=== PATIENT | male | born 1995 | race Caucasian/White ===

== ENCOUNTER 2022-12-28 14:19 | Outpatient (OUT) | payer OTHER, SELFPAY ==
--- NOTE | 2022-12-28 | XR_ITS ---
The [address] [address] Patient Name: J CARLOS BARCENAS MRN: [id number] date: 1995 Sex: M Assigned Patient Location: RAD Current Patient Location: RAD Accession/Order Number: [id number] Exam Date: 12/28/2022 14:30 Report Date: 12/28/2022 15:08 At the request of: KARIE NEGRO Procedure: XR knee RT 4V EXAM: XR knee RT 4V HISTORY: Right knee injury COMPARISON: None. TECHNIQUE: Routine views of the XR knee RT 4V FINDINGS/ XR/XR knee RT 4V IMPRESSION: 1. No acute fractures. 2. Unremarkable soft tissues. 3. Normal joint spacing. Joint effusion. Electronically authenticated by: ADELSO HALL Date: 12/28/2022 15:08
== END 2022-12-28 14:20 | disposition home or self-care (01) ==
LOC: RAD 14:22
PROVIDERS: PCP Family Medicine; Visit Provider Nurse Practitioner Family
DX: S89.91XA Unspecified injury of right lower leg, initial encounter (principal)
CPT/HCPCS: 73564

== ENCOUNTER 2023-01-11 10:14 | Outpatient (RCR) | payer OTHER, SELFPAY | END 2023-01-24 11:49 | disposition home or self-care (01) | LOC: PT 10:14 | PROVIDERS: PCP Family Medicine; Visit Provider Nurse Practitioner Family | DX: S83.91XD Sprain of unspecified site of right knee, subsequent encounter (principal); R26.89 Other abnormalities of gait and mobility; R26.9 Unspecified abnormalities of gait and mobility; S86.811D Strain of other muscle(s) and tendon(s) at lower leg level, right leg, subsequent encounter | CPT/HCPCS: 97110; 97161 ==

== ENCOUNTER 2023-02-13 12:24 | Outpatient (OUT) | payer OTHER, SELFPAY ==
--- OUTSIDE RECORDS SUMMARY | 2023-02-13 12:28 | XMS_ITS | CCD ---
Author Name Unknown Address [address] [place] [address] Organization [facility] Care Team Providers Care Instructor Dramatic Arts Name Role Phone LISA ESTEVEZ Unavailable Unavailable NO, PHYSICIAN Unavailable Unavailable AYLIN HEAD Unavailable Unavailabl e NO, PHYSICIAN Unavailable Unavailable AYLIN HEAD Unavailable Unavailabl e ASGEDOM, GOITOM ANDOM Unavailable Unavailabl e ASGEDOM, GOITOM ANDOM Unavailable Unavailabl e GIRME, NADIA SHANKARRAO Unavailable Unavaila Ivonne Akbar Primary Care Provider Torrie Paniagua Unavailable CANDELARIO, DR CASIMIRO Collado Primary Care Unavailable SANDEEP RICKETTS Admitting Unavailable SANDEEP RICKETTS Attending Unavailable SANDEEP RICKETTS Consulting Unavailable MICHELE CHAVEZ Consulting Unavailable FAITH RAMSEY Consulting Unavailable PRISCILLA, DR LE Orosco Consulting Unavailable PRISCILLA, DR LE Orosco Admitting Unavailable CANDELARIO, DR CASIMIRO Collado Primary Care Unavailable PRISCILLA, DR LE Orosco Attending Unavailable JAY HOOK Consulting Unavailable PIA JUAREZ Consulting Unavailable Kori Roldan Unavailable Allergies Allergy Classification Reported Allergen(s) Allergy Type Date of Onset Reaction(s) Facility (1 source) spider venom Drug allergy (disorder) 10-29-2021 [facility] Repository Medications Current Medications Medication Drug Class(es) Dates Sig (Normalized) Sig (Original) dextromethorphan hydrobromide 15 mg / guaiFENesin 400 mg / pseudoephedrine hydrochloride 60 mg oral tablet (1 source) alpha-Adrenergic Agonist, Uncompetitive E-rrherw-G-aspartat e Receptor Antagonist, Sigma-1 Agonist Start: 11-02-2022 take 1 tablet by mouth every six hours as needed for cough Capmist DM 60-15-400 MG 1 tablet Orally q6hrs prn congestion/coug h for 7 days Oct, Active Completed/Discontinued Medications Medication Drug Class(es) Dates Sig (Normalized) Sig (Original) cefTRIAXone (3 sources) Cephalosporin Antibacterial Start: 11-24-2015 Rocephin 500 mg Nov, 250 mg Problems Active Problems Problem Classification Problem Date Documented Date Episodic/Chronic Anxiety disorders (1 source) Anxiety disorder, unspecified; Translations: [ANXIETY DISORDER UNSPECIFIED] Onset: 09-12-2021 Chronic Immunizations and screening for infectious disease (4 sources) Contact with and (suspected) exposure to other viral communicable diseases; Translations: [Contact with and (suspected) exposure to other viral communicable diseases] Onset: 10-20-2021 Resolved: 10-20-2021 Episodic Influenza (1 source) Influenza due to other identified influenza virus with other respiratory manifestations Episodic Other aftercare (1 source) Other chcf (current) drug therapy; Translations: [OTH ELECTRICAL INSPECTOR CURRENT DRUG THERAPY] Onset: 09-12-2021 Episodic Other lower respiratory disease (4 sources) Shortness of breath; Translations: [SHORTNESS OF BREATH] Onset: 09-08-2021 Episodic Other nervous system disorders (1 source) Anesthesia of skin; Translations: [ANESTHESIA OF SKIN] Onset: 09-12-2021 Episodic Other nutritional; endocrine; and metabolic disorders (1 source) Hypomagnesemia; Translations: [HYPOMAGNESEMIA] Onset: 09-12-2021 Chronic Other upper respiratory infections (4 sources) Acute pharyngitis, unspecified; Translations: [Acute upper respiratory infection, unspecified] Onset: 04-05-2017 Episodic Pleurisy; pneumothorax; pulmonary collapse (1 source) Pleurisy; Translations: [PLEURISY] Onset: 11-15-2021 Episodic Substance-related disorders (1 source) Nicotine dependence, cigarettes, uncomplicated; Translations: [NICOTINE DEPEND CIGARETTES UNCOMP] Onset: 11-15-2021 Chronic Unclassified (2 sources) COUGH, UNSPECIFIED; Translations: [COUGH, UNSPECIFIED] Onset: 11-15-2021 Unclassified (1 source) PERSONAL HISTORY OF COVID-19; Translations: [PERSONAL HISTORY OF COVID-19] Onset: 11-15-2021 Unclassified (1 source) CONTACT W/AND (SUSP) EXPOS COVID-19; Translations: [CONTACT W/AND (SUSP) EXPOS COVID-19] Onset: 11-15-2021 Past or Other Problems Problem Classification Problem Date Documented Da te Episodic/Chronic Other nervous system disorders (2 sources) Tremor, unspecified; Translations: [Tremor, unspecified] Onset: 04-07-2017 Episodic Unclassified (2 sources) Other general symptoms and signs; Translations: [Other general symptoms and signs] Onset: 04-03-2017 Episodic Unclassified (1 source) COUGH, UNSPECIFIED; Translations: [COUGH, UNSPECIFIED] Onset: 10-29-2021 Unclassified (2 sources) Contact with and (suspected) exposure to covid-19 Z20.822 Viral infection (1 source) COVID-19 Onset: 10-20-2021 Resolved: 10-20-2021 Results Test Name Value Interpretation Reference Range Facility COVID Quick Testingon 2022 Result Negative [employer] Other COVID + FLU Quick Testingon 07-12-2022 SARS-CoV-2 (COVID-19) RNA CHRISTIANO+probe Ql (Unsp spec) Negative [employer] Other COVID + FLU Quick Testing Positive [employer] Other COVID + FLU Quick Testing Negative [employer] Other Quick Strepon 07-12-2022 S. pyogenes Org specific cx Ql (Throat) Negative [employer] Other Quick Strep [employer] Other CTA CHEST WO W CONon 022 CTA CHEST WO W CON EXAM: CTA chest. CLINICAL SYMPTOMS: Male, 26 years, CHEST PAIN, UNSPECIFIED. COMPARISONS: Chest radiograph, same date, prior CTA chest 09/08/2021. TECHNIQUE: Helical CTA of the pulmonary arteries was performed following rapid injection of intravenous contrast with coronal and sagittal MIP images following the administration of 100 mL Omnipaque 350 IV contrast. Dose reduction techniques were achieved by using automated exposure control and/or adjustment of mA and/or KVP according to patient size and/or use of iterative reconstruction technique. CTA: There are no filling defects identified in the pulmonary arteries to suggest pulmonary embolism. There is no thoracic aortic dissection or aneurysm identified. The thoracic aorta is normal. CT CHEST: The lung parenchyma is normal. There is no pleural effusion. No mediastinal or hilar adenopathy. Heart size is normal. The visualized portion of the abdomen is unremarkable. IMPRESSION: No evidence for pulmonary embolism or aortic dissection. The lungs are clear. Electronically authenticated by: JAY HOOK Date: 2021-10-29 22:22 Normal [facility] CARDIAC LE ADMITon 022 CK [Catalytic activity/Vol] 89 U/L Normal 39-308 [facility] Comment on above: Performed By: #### C BC #### [facility] [address] [place] [address] Dr. Roberta Calderon CK.MB [Mass/Vol] 0.57 ng/mL Normal <=3.60 [facility] Comment on above: Performed By: #### C BC #### [facility] [address] [place] [address] Dr. Roberta Calderon HSTROP <4.0 Normal 4.0-76.1 [facility] Comment on above: Result Comment: CUT- OFF POINTS HAVE BEEN ESTABLISHED BASED ON THE FOURTH UNIVERSAL DEFINITIONS OF MYOCARDIAL INFARCTION. THE UPPER REFERENCE LIMIT (URL) OF TROPONIN, DEFINED THE 99TH PERCENTILE OF cTnI DISTRIBUTION IN A REFERENCE POPULATION, HAS BEEN CONFIRMED THE DECISION THRESHOLD FOR DC DIAGNOSIS. Performed By: #### C BC #### [facility] [address] [place] [address] Dr. Roberta Calderon CAIN 37 ng/mL Normal 16-96 [facility] Comment on above: Performed By: #### C BC #### [facility] [address] [place] [address] Dr. Roberta Calderon CBC AUTO DIFFon 10-29-2021 BASO # 0.0 103/ul Normal 0.0-0.1 [facility] Comment on above: Performed By: #### C BC #### [facility] [address] [place] [address] Dr. Roberta Calderon Basophils/100 WBC (Bld) 0.6 % Normal 0.2-2.0 [facility] Comment on above: Performed By: #### C BC #### [facility] [address] [place] [address] Dr. Roberta Calderon EO # 0.2 103/ul Normal 0.0-0.7 [facility] Comment on above: Performed By: #### C BC #### [facility] [address] [place] [address] Dr. Roberta Calderon Eosinophils/100 WBC (Bld) 2.6 % Normal 0.9-7.0 [facility] Comment on above: Performed By: #### C BC #### [facility] [address] [place] [address] Dr. Roberta Calderon Erythrocyte distribution width (RBC) [Ratio] 12.7 % Normal 11.0-15.0 [facility] Comment on above: Performed By: #### C BC #### [facility] [address] [place] [address] Dr. Roberta Calderon Hematocrit (Bld) [Volume fraction] 40.6 % Critically low 42.0-54.0 [facility] Comment on above: Performed By: #### C BC #### [facility] [address] [place] [address] Dr. Roberta Calderon Hemoglobin (Bld) [Mass/Vol] 13.9 g/dL Critically low 14.0-18.0 [facility] Comment on above: Performed By: #### C BC #### [facility] [address] [place] [address] Dr. Roberta Calderon IG # 0.01 10e3/ul Normal 0.00-0.03 [facility] Comment on above: Performed By: #### C BC #### [facility] [address] [place] [address] Dr. Roberta Calderon IG % 0.2 % Normal 0.0-0.5 [facility] Comment on above: Performed By: #### C BC #### [facility] [address] [place] [address] Dr. Roberta Calderon LYMPH # 2.4 103/ul Normal 1.2-3.8 [facility] Comment on above: Performed By: #### C BC #### [facility] [address] [place] [address] Dr. Roberta Calderon Lymphocytes/100 WBC (Bld) 35.4 % Normal 20.5-60.0 [facility] Comment on above: Performed By: #### C BC #### [facility] [address] [place] [address] Dr. Roberta Calderon MANUAL DIFF REQ NO Normal [facility] Comment on above: Performed By: #### C BC #### [facility] [address] [place] [address] Dr. Roberta Calderon MCH (RBC) [Entitic mass] 30.5 pg Normal 25.9-34.0 [facility] Comment on above: Performed By: #### C BC #### [facility] [address] [place] [address] Dr. Roberta Calderon MCHC (RBC) [Mass/Vol] 34.2 g/dL Normal 29.9-35.2 [facility] Comment on above: Performed By: #### C BC #### [facility] [address] [place] [address] Dr. Roberta Calderon MCV (RBC) [Entitic vol] 89.2 fL Normal 80.0-94.0 [facility] Comment on above: Performed By: #### C BC #### [facility] [address] [place] [address] Dr. Roberta Calderon MONO # 1.0 103/ul Critically high 0.3-0.8 [facility] Comment on above: Performed By: #### C BC #### [facility] [address] [place] [address] Dr. Roberta Calderon Monocytes/100 WBC (Bld) 14.6 % Critically high 1.7-12.0 [facility] Comment on above: Performed By: #### C BC #### [facility] [address] [place] [address] Dr. Roberta Calderon NEUT # 3.1 103/ul Normal 1.4-6.5 [facility] Comment on above: Performed By: #### C BC #### [facility] [address] [address] [address] Roberta Calderon Neutrophils/100 WBC (Bld) 46.6 % Normal 43.0-75.0 [facility] Comment on above: Performed By: #### C BC #### [facility] [address] [address] [address] Roberta Calderon Platelet mean volume (Bld) [Entitic vol] 10.5 fL Normal 9.5-13.5 [facility] Comment on above: Performed By: #### C BC #### [facility] [address] [address] [address] Roberta Calderon PLT 275 103/ul Normal 150-450 [facility] Comment on above: Performed By: #### C BC #### [facility] [address] [place] [address] Dr. Roberta Calderon RBC 4.55 106/ul Critically low 4.70-6.10 [facility] Comment on above: Performed By: #### C BC #### [facility] [address] [address] [address] Roberta Calderon WBC 6.7 103/ul Normal 4.0-11.0 [facility] Comment on above: Performed By: #### C BC #### [facility] [address] [place] [address] Dr. Roberta Calderon [facility]13 SARS-CoV-2 (COVID-19) RNA CHRISTIANO+probe Ql (Unsp spec) Not detected Normal NOT DETECTED [facility] Comment on above: Result Comment: When diagnostic testing is negative, the possibility of a false negative should be considered in the context of a patient's recent exposures and the presence of clinical signs and symptoms consistent with SARS-CoV-2. This test is not yet approved or cleared by the [place] FDA. When there are no FDA-approved or cleared tests available, and other criteria are met, FDA can make tests available under an emergency access mechanism called an Emergency Use Authorization (EUA). The EUA for this test is supported by the [place] of Health and Human Service's declaration that circumstances exist to justify the emergency use of in vitro diagnostics for the detection and/or diagnosis of the virus that causes COVID-19. This EUA will remain in effect for the duration of the COVID-19 declaration justifying emergency of IVDs, unless it is terminated or revoked by the FDA (after which the test may no longer be used). Performed By: #### C VDTBH #### [facility] [address] [place] [address] Dr. Roberta Calderon D-DIMERon 10-29-2021 D-DIMER 2.47 mg/L FEU Critically high <=0.59 [facility] Comment on above: Performed By: #### D DIM #### [facility] [address] [place] [address] Dr. Roberta Calderon D-DIMER COMMENTS SEE BELOW Normal [facility] Comment on above: Result Comment: Incr eases in D-Dimer concentration observed with thromboembolic events can be variable due to localization, size, and age of the thrombus. Therefore, a thromboembolic event cannot be diagnosed with certainty on the basis of the reference range. D-Dimers may also be elevated for a variety of disorders including: advanced age, , coronary disease, cancer, liver disease, infection, inflammation, hematoma, DIC, trauma, post-surgery, diabetes, thrombolytic or anticoagulant therapy, stress, and generalized hospitalization. Performed By: #### D DIM #### [facility] [address] [place] [address] Dr. Roberta Calderon PROF CHEM 8 (BAS METB)on Anion gap [Moles/Vol] 12.3 mmol/L Normal [facility] Comment on above: Performed By: #### C BC #### [facility] [address] [place] [address] Dr. Roberta Calderon Calcium [Mass/Vol] 9.2 mg/dL Normal 8.5-10.1 [facility] Comment on above: Performed By: #### C BC #### [facility] [address] [place] [address] Dr. Roberta Calderon Chloride [Moles/Vol] 108 mmol/L Critically high 98-107 [facility] Comment on above: Performed By: #### C BC #### [facility] [address] [address] [address] Roberta Calderon CO2 [Moles/Vol] 24.6 mmol/L Normal 21.0-32.0 [facility] Comment on above: Performed By: #### C BC #### [facility] [address] [address] [address] Roberta Calderon Creatinine [Mass/Vol] 1.03 mg/dL Normal 0.70-1.30 [facility] Comment on above: Performed By: #### C BC #### [facility] [address] [address] [address] Roberta Calderon EGFR-AF [facility] >60 Normal >=60 [facility] Comment on above: Performed By: #### C BC #### [facility] [address] [place] [address] Dr. Roberta Calderon EGFR-NON AF [facility] >60 Normal >=60 [facility] Comment on above: Performed By: #### C BC #### [facility] [address] [place] [address] Dr. Roberta Calderon Glucose [Mass/Vol] 83 mg/dL Normal 74-106 [facility] Comment on above: Performed By: #### C BC #### [facility] [address] [place] [address] Dr. Roberta Calderon Potassium [Moles/Vol] 3.9 mmol/L Normal 3.5-5.1 [facility] Comment on above: Performed By: #### C BC #### [facility] [address] [place] [address] Dr. Roberta Calderon Sodium [Moles/Vol] 141 mmol/L Normal 136-145 [facility] Comment on above: Performed By: #### C BC #### [facility] [address] [place] [address] Dr. Roberta Calderon Urea nitrogen [Mass/Vol] 7.0 mg/dL Normal 7.0-18.0 [facility] Comment on above: Performed By: #### C BC #### [facility] [address] [place] [address] Dr. Roberta Calderon Urea nitrogen/Creatini ne [Mass ratio] 6.8 mg/mg Normal [facility] Comment on above: Performed By: #### C #### [facility] [address] [address] [address] Roberta Calderon XR CHEST 1 Von 10-29-2021 XR CHEST 1 V EXAM: XR CHEST 1 V REASON FOR EXAM: Male, 26 years, SHORTNESS OF BREATH. TECHNIQUE: A single AP view of the chest is performed. COMPARISON: 09/08/2021. FINDINGS: The lungs are expanded and clear. Normal pleura. Normal size heart. Normal mediastinum and liz. Normal visualized pulmonary arteries. Normal visualized aortic arch and descending thoracic aorta. Normal visualized thoracic spine. Normal visualized ribs, clavicles, and shoulders. There is no demonstrated abnormality of the visualized soft tissue structures of the upper abdomen. IMPRESSION: Normal examination of the chest. Electronically authenticated by: JAY HOOK Date: 2021-10-29 20:13 Normal [facility] SARS-CoV-2 (COVID-19) RNA NA A+probe Ql (Resp)on 10-20-2021 SARS-CoV-2 (COVID-19) RNA CHRISTIANO+probe Ql (Unsp spec) Positive [employer] Other CTA CHEST WO W CONon 022 CTA CHEST WO W CON CTA CHEST WITH IV CONTRAST CTA CHEST WO W CON, DATE: 09/08/2021 10:30 PM EDT HISTORY: SHORTNESS OF BREATH in a 26-year-old male COMPARISON: Chest x-ray dated 09/08/2021 TECHNIQUE: Multiple axial images are taken from the level of the thyroid down through the upper abdomen with the use of IV contrast. Images are then reconstructed in the sagittal and coronal planes. This exam was performed according to our departmental dose-optimization program which includes use of Automated Exposure Control, adjustment of the mA and/or kV according to patient size and/or use of iterative reconstruction technique. Postprocessing was performed for CTA with the following as per hospital protocol: Maximum intensity projection (MIPs) Contrast Used: 100 ml of Omnipaque 350 FINDINGS: Lungs: Lungs are adequately expanded with bibasilar atelectasis. Pleura: No pneumothorax. No pneumomediastinum. No effusion. Thyroid: Normal Mediastinum: Aorta: Evaluation of the ascending aorta is limited due to some motion artifact linear lucency seen in the ascending aorta. However, this appears to be an artifact as it extends out past the aorta and is seen on either sides of the aorta and is most likely due to some motion. (See on axial image 51, series 4) Pulmonary artery: Normal. No pulmonary embolus, allowing for bolus timing. Heart: Normal. Trachea/Bronchi: Well aerated. No intraluminal masses. Esophagus: Decompressed which limits evaluation. Normal for the lack of distention. Lymph Nodes: Normal. Chest wall: Normal. Axilla: Normal. Osseous Structures: Normal for patient's age. Subdiaphragm: The subdiaphragmatic abdominal organs included in the [id number] do not demonstrate any acute abnormality. IMPRESSION: 1. Severely limited evaluation of the ascending aorta due to motion artifact with a linear lucency seen in the ascending aorta that appears to mimic an aortic dissection. However, this is an artifact. This artifact extends out past the aorta onto either side of the heart and is seen on either sides of the aorta and is due to some motion. (See on axial image 50-51, series 4). If clinically indicated repeat CTA using cardiac gating may help better delineate. 2. No CT evidence for acute pulmonary embolus. Electronically authenticated by: MICHELE CHAVEZ Date: 2021-09-09 00:13 Normal [facility] DRUG SCREEN RAPID (URINE)on 09-09-2021 AMP Negative Normal NEGATIVE [facility] Comment on above: Performed By: #### D RUGRPD #### [facility] [address] [place] [address] Dr. Roberta Calderon BAR Negative Normal NEGATIVE [facility] Comment on above: Performed By: #### D RUGRPD #### [facility] [address] [address] [address] Roberta Calderon BUP Negative Normal NEGATIVE [facility] Comment on above: Performed By: #### D RUGRPD #### [facility] [address] [place] [address] Dr. Roberta Calderon BZO Negative Normal NEGATIVE [facility] Comment on above: Performed By: #### D RUGRPD #### [facility] [address] [address] [address] Roberta Calderon PATRICK Negative Normal NEGATIVE [facility] Comment on above: Performed By: #### D RUGRPD #### [facility] [address] [address] [address] Roberta Calderon CUT-OFFS SEE BELOW Normal [facility] Comment on above: Result Comment: AMP (Amphetamine): 500ng/mL, BAR (Barbituates): 200 ng/mL, BZO (Benzodiazepines): 150 ng/mL, BUP (Buprenorphine): 10 ng/mL, PATRICK (Cocaine): 150 ng/mL, mAMP (Methamphetamine): 500 ng/mL, MTD (Methadone): 200 ng/mL, OPI (Opiates): 100 ng/mL, OXY (Oxycodone): 100 ng/mL, PCP (Phencyclidine): 25 ng/mL, PPX (Propoxyphene): 300 ng/mL, THC (Cannabinoids): 50 ng/mL, TCA (Trycyclic Antidepressants): 300 ng/mL Performed By: #### D RUGRPD #### [facility] [address] [place] [address] Dr. Roberta Calderon DRUG CUT HEADER DRUG CLASS TEST SYST EM CUT-OFF CONCENTRATIONS ARE FOLLOWS: Normal [facility] Comment on above: Performed By: #### D RUGRPD #### [facility] [address] [place] [address] Dr. Roberta Calderon mAMP Negative Normal NEGATIVE [facility] Comment on above: Performed By: #### D RUGRPD #### [facility] [address] [address] [address] Roberta Calderon MTD Negative Normal NEGATIVE [facility] Comment on above: Performed By: #### D RUGRPD #### [facility] [address] [address] [address] Roberta Calderon OPI Negative Normal NEGATIVE [facility] Comment on above: Performed By: #### D RUGRPD #### [facility] [address] [address] [address] Roberta Calderon OXY Negative Normal NEGATIVE [facility] Comment on above: Performed By: #### D RUGRPD #### [facility] [address] [address] [address] Roberta Calderon PCP Negative Normal NEGATIVE [facility] Comment on above: Performed By: #### D RUGRPD #### [facility] [address] [address] [address] Roberta Calderon PPX Negative Normal NEGATIVE [facility] Comment on above: Performed By: #### D RUGRPD #### [facility] [address] [place] [address] Dr. Roberta Calderon TCA Negative Normal NEGATIVE [facility] Comment on above: Performed By: #### D RUGRPD #### [facility] [address] [place] [address] Dr. Roberta Calderon THC Negative Normal NEGATIVE [facility] Comment on above: Performed By: #### D RUGRPD #### [facility] [address] [place] [address] Dr. Roberta Calderon XR CHEST 1 Von 09-09-2021 XR CHEST 1 V EXAM: XR CHEST 1 V HISTORY: SHORTNESS OF BREATH; onset of numbness and tingling to hands and legs COMPARISON: None. FINDINGS: No focal consolidative opacity or pulmonary edema. There are numerous upper lobe predominant nodular densities measuring approximately 2-3 mm. There is no pleural effusion or profiled pneumothorax. The cardiomediastinal contour is normal. Visualized portions of the upper abdomen are unremarkable. No acute osseus abnormality. IMPRESSION: Numerous upper lobe predominant nodular densities throughout both lung. These findings could represent healed granulomatous disease although incompletely evaluated by radiograph without available priors. Recommend further evaluation with dedicated chest CT. Electronically authenticated by: FAITH RAMSEY Date: 2021-09-08 22:16 Normal [facility] CBC AUTO DIFFon 09-08-2021 BASO # 0.0 103/ul Normal 0.0-0.1 [facility] Comment on above: Performed By: #### C BC #### [facility] [address] [place] [address] Dr. Roberta Calderon Basophils/100 WBC (Bld) 0.7 % Normal 0.2-2.0 [facility] Comment on above: Performed By: #### C BC #### [facility] [address] [place] [address] Dr. Roberta Calderon EO # 0.1 103/ul Normal 0.0-0.7 [facility] Comment on above: Performed By: #### C BC #### [facility] [address] [place] [address] Dr. Roberta Calderon Eosinophils/100 WBC (Bld) 1.6 % Normal 0.9-7.0 [facility] Comment on above: Performed By: #### C BC #### [facility] [address] [place] [address] Dr. Roberta Calderon Erythrocyte distribution width (RBC) [Ratio] 12.1 % Normal 11.0-15.0 [facility] Comment on above: Performed By: #### C BC #### [facility] [address] [place] [address] Dr. Roberta Calderon Hematocrit (Bld) [Volume fraction] 39.5 % Critically low 42.0-54.0 [facility] Comment on above: Performed By: #### C BC #### [facility] [address] [place] [address] Dr. Roberta Calderon Hemoglobin (Bld) [Mass/Vol] 13.9 g/dL Critically low 14.0-18.0 [facility] Comment on above: Performed By: #### C BC #### [facility] [address] [place] [address] Dr. Roberta Calderon IG # 0.01 10e3/ul Normal 0.00-0.03 [facility] Comment on above: Performed By: #### C BC #### [facility] [address] [place] [address] Dr. Roberta Calderon IG % 0.2 % Normal 0.0-0.5 [facility] Comment on above: Performed By: #### C BC #### [facility] [address] [place] [address] Dr. Roberta Calderon LYMPH # 0.9 103/ul Critically low 1.2-3.8 [facility] Comment on above: Performed By: #### C BC #### [facility] [address] [place] [address] Dr. Roberta Calderon Lymphocytes/100 WBC (Bld) 16.5 % Critically low 20.5-60.0 [facility] Comment on above: Performed By: #### C BC #### [facility] [address] [place] [address] Dr. Roberta Calderon MANUAL DIFF REQ NO Normal [facility] Comment on above: Performed By: #### C BC #### [facility] [address] [place] [address] Dr. Roberta Calderon MCH (RBC) [Entitic mass] 30.6 pg Normal 25.9-34.0 [facility] Comment on above: Performed By: #### C BC #### [facility] [address] [place] [address] Dr. Roberta Calderon MCHC (RBC) [Mass/Vol] 35.2 g/dL Normal 29.9-35.2 [facility] Comment on above: Performed By: #### C BC #### [facility] [address] [place] [address] Dr. Roberta Calderon MCV (RBC) [Entitic vol] 87.0 fL Normal 80.0-94.0 [facility] Comment on above: Performed By: #### C BC #### [facility] [address] [place] [address] Dr. Roberta Calderon MONO # 0.9 103/ul Critically high 0.3-0.8 [facility] Comment on above: Performed By: #### C BC #### [facility] [address] [place] [address] Dr. Roberta Calderon Monocytes/100 WBC (Bld) 16.3 % Critically high 1.7-12.0 [facility] Comment on above: Performed By: #### C BC #### [facility] [address] [place] [address] Dr. Roberta Calderon NEUT # 3.7 103/ul Normal 1.4-6.5 [facility] Comment on above: Performed By: #### C BC #### [facility] [address] [place] [address] Dr. Roberta Calderon Neutrophils/100 WBC (Bld) 64.7 % Normal 43.0-75.0 [facility] Comment on above: Performed By: #### C BC #### [facility] [address] [place] [address] Dr. Roberta Calderon Platelet mean volume (Bld) [Entitic vol] 11.0 fL Normal 9.5-13.5 [facility] Comment on above: Performed By: #### C BC #### [facility] [address] [place] [address] Dr. Roberta Calderon PLT 225 103/ul Normal 150-450 [facility] Comment on above: Performed By: #### C BC #### [facility] [address] [place] [address] Dr. Roberta Calderon RBC 4.54 106/ul Critically low 4.70-6.10 [facility] Comment on above: Performed By: #### C BC #### [facility] [address] [place] [address] Dr. Roberta Calderon WBC 5.7 103/ul Normal 4.0-11.0 [facility] Comment on above: Performed By: #### C BC #### [facility] [address] [place] [address] Dr. Roberta Calderon MAGNESIUMon 09-08-2021 Magnesium [Mass/Vol] 1.6 mg/dL Critically low 1.8-2.4 [facility] Comment on above: Performed By: #### M G #### [facility] [address] [place] [address] Dr. Roberta Calderon PROF 14(COMP METB)on 022 Albumin [Mass/Vol] 4.2 g/dL Normal 3.4-5.0 [facility] Comment on above: Performed By: #### C BC #### [facility] [address] [place] [address] Dr. Roberta Calderon Albumin/Globulin [Mass ratio] 1.3 {ratio} Normal [facility] Comment on above: Performed By: #### C BC #### [facility] [address] [address] [address] Roberta Calderon ALP [Catalytic activity/Vol] 60 U/L Normal 46-116 [facility] Comment on above: Performed By: #### C BC #### [facility] [address] [place] [address] Dr. Roberta Calderon ALT [Catalytic activity/Vol] 25 U/L Normal 16-63 [facility] Comment on above: Performed By: #### C BC #### [facility] [address] [place] [address] Dr. Roberta Calderon Anion gap [Moles/Vol] 16.9 mmol/L Normal [facility] Comment on above: Performed By: #### C BC #### [facility] [address] [place] [address] Dr. Roberta Calderon AST [Catalytic activity/Vol] 16 U/L Normal 15-37 [facility] Comment on above: Performed By: #### C BC #### [facility] [address] [place] [address] Dr. Roberta Calderon Bilirubin [Mass/Vol] 0.4 mg/dL Normal 0.2-1.0 [facility] Comment on above: Performed By: #### C BC #### [facility] [address] [place] [address] Dr. Roberta Calderon Calcium [Mass/Vol] 8.9 mg/dL Normal 8.5-10.1 [facility] Comment on above: Performed By: #### C BC #### [facility] [address] [place] [address] Dr. Roberta Calderon Chloride [Moles/Vol] 102 mmol/L Normal 98-107 [facility] Comment on above: Performed By: #### C BC #### [facility] [address] [place] [address] Dr. Roberta Calderon CO2 [Moles/Vol] 21.4 mmol/L Normal 21.0-32.0 [facility] Comment on above: Performed By: #### C BC #### [facility] [address] [place] [address] Dr. Roberta Calderon Creatinine [Mass/Vol] 1.20 mg/dL Normal 0.70-1.30 [facility] Comment on above: Performed By: #### C BC #### [facility] [address] [place] [address] Dr. Roberta Calderon EGFR-AF [facility] >60 Normal >=60 [facility] Comment on above: Performed By: #### C BC #### [facility] [address] [address] [address] Roberta Calderon EGFR-NON AF [facility] >60 Normal >=60 [facility] Comment on above: Performed By: #### C BC #### [facility] [address] [address] [address] Roberta Calderon Globulin (S) [Mass/Vol] 3.3 g/dL Normal [facility] Comment on above: Performed By: #### C BC #### [facility] [address] [place] [address] Dr. Roberta Calderon Glucose [Mass/Vol] 89 mg/dL Normal 74-106 [facility] Comment on above: Performed By: #### C BC #### [facility] [address] [address] [address] Roberta Calderon Potassium [Moles/Vol] 3.3 mmol/L Critically low 3.5-5.1 [facility] Comment on above: Performed By: #### C BC #### [facility] [address] [place] [address] Dr. Roberta Calderon Protein [Mass/Vol] 7.5 g/dL Normal 6.4-8.2 [facility] Comment on above: Performed By: #### C BC #### [facility] [address] [place] [address] Dr. Roberta Calderon Sodium [Moles/Vol] 137 mmol/L Normal 136-145 [facility] Comment on above: Performed By: #### C BC #### [facility] [address] [place] [address] Dr. Roberta Calderon Urea nitrogen [Mass/Vol] 16.0 mg/dL Normal 7.0-18.0 [facility] Comment on above: Performed By: #### C BC #### [facility] [address] [place], [place] [address] Dr. Roberta Calderon Urea nitrogen/Creatini ne [Mass ratio] 13.3 mg/mg Normal [facility] Comment on above: Performed By: #### C BC #### [facility] [address] [place], [place] [address] Dr. Roberta Calderon MR BRAIN WITH AND WITHOUT CO NTRASTon 04-08-2017 MR BRAIN WITH AND WITHOUT CONTRAST EXAMINATION:MR BRAIN WITH AND WITHOUT CONTRASTHISTORY:seizure Dx: R25.1 (Episode of shaking) Reason for exam?:pt unresponsive and fell last night according to girlfriend, pt does not remember episodeInjury/Trauma or Illness?:Illness/OtherC ONTRAST:GADOTERATE MEGLUMINE 0.5 MMOL/ML INTRAVENOUS SOLUTION - 10 mL,TECHNIQUE:Sagittal T1, axial T1, gradient echo, FLAIR, GUDELIA T2, diffusion imaging without contrast and post contrast sagittal, axial and coronal T1 images performed. Coronal FLAIR and T2-weighted images performed.FINDINGS:Vent ricles, sulci and basilar cisterns are normal in appearance. No evidence of mass, signal abnormality, restrictive diffusion or abnormal enhancement. The cerebral hemispheres, brain stem and the cerebellar hemispheres are otherwise normal. Good flow void is seen in the vertebrobasilar and carotid arteries and the sagittal and transverse sinuses. The orbital apices and infratemporal fossa are normal. The craniocervical junction is normal. The mesial temporal lobes and hippocampus are normal in appearance.IMPRESSION:1 . Normal examination of the brain.CHELSIE/joseWorkstaeddie n ID: [id number] by: Martin TINEO on SunApr 08, 2017 11:23:34 AM ESTTranscribed by: ANKIT MANNING on SunApr 08, 2017 11:33:25 AM ESTFinalized by: Martin TINEO on SunApr 08, 2017 12:55:36 PM EST Normal [facility] Comment on above: Order Comment: Reaso n for exam?:pt unresponsive and fell last night according to girlfriend, pt does not remember episodeInjury/Trauma or Illness?:Illness/OtherHow long have you had these symptoms (acute/chronic)?:AcuteType of Exam?:InitialAdditional signs and symptoms?:none CT HEAD OR BRAIN WITHOUT CON TRASTon 04-07-2017 CT HEAD OR BRAIN WITHOUT CONTRAST EXAMINATION:CT HEAD OR BRAIN WITHOUT CONTRASTHISTORY:CHRISTELIN [facility] SYSTEM PROVIDED HISTORY: shaking, TECHNOLOGIST PROVIDED HISTORY: Reason for exam: Shaking. EMS reports call for patient short of breath, increased respirations and visibly shaking. Pt c/o numbness/tingling to x4 extremitiesIllness/Othe rEncounter Type: InitialAdditional signs and symptoms: Shaking. EMS reports call for patient short of breath, increased respirations and visibly shaking. Pt c/o numbness/tingling to x4 extremitiesORDERING SYSTEM PROVIDED DIAGNOSIS CODES:COMPARISON:NoneTE CHNIQUE:CT examination of the head without IV contrast.Dose reduction techniques were achieved by using automated exposure control and/or adjustment of mA and/or kV according to patient size and/or use of iterative reconstruction technique.FINDINGS:The skull base and contents are unremarkable. Skull and scalp are unremarkable. Limited views the periorbital regions and paranasal sinuses are unremarkable. Posterior fossa and parasellar region and ventricular cisternal structures are unremarkable. There is no bleed or edema or extra-axial fluid collections.The reconstructed images show no acute processes.IMPRESSION:No nacute CT scan the head. Recommend follow-up as needed.Workstation ID: [id number] by: PABLO KEARNS on Sat Apr 07, 2017 9:10:13 PM ESTTranscribed by: PABLO KEARNS on [facility] Apr 07, 2017 9:10:13 PM ESTFinalized by: PABLO KEARNS on [facility] Apr 07, 2017 9:10:13 PM EST Normal [facility] Comment on above: Order Comment: Reaso n for exam?:Shaking. EMS reports call for patient short of breath, increased respirations and visibly shaking. Pt c/o numbness/tingling to x4 extremitiesInjury/Trauma or Illness?:Illness/OtherHow long have you had these symptoms (acute/chronic)?:AcuteType of Exam?:InitialAdditional signs and symptoms?:Shaking. EMS reports call for patient short of breath, increased respirations and visibly shaking. Pt c/o numbness/tingling to x4 extremities Vital Signs Date Time Vital Sign Value Performing Clinician Facility 09-21-2023 09:15-0400 Body height 172.09 cm Kori Yuli Other [facility] Other 11-02-2022 09:15-0400 Body mass index (BMI) [Ratio] 21.6 kg/m2 Kori Yuli Other [facility] Other 11-02-2022 09:15-0400 Body temperature 98.9 [degF] Kori Yuli Other [facility] Other 11-02-2022 09:15-0400 Body weight 63.96 kg Kori Yuli Other [facility] Other 11-02-2022 09:15-0400 Diastolic blood pressure 70 mm[Hg] Koridavid Roldan Other [facility] Other 11-02-2022 09:15-0400 Respiratory rate 18 /min Kori Yuli Other [facility] Other 11-02-2022 09:15-0400 SaO2% (BldA) [Mass fraction] 99 % Kori Yuli Other [facility] Other 11-02-2022 09:15-0400 Systolic blood pressure 108 mm[Hg] Kori Roldan Other [facility] Other 07-12-2022 15:50-0400 Body height 172.09 cm Torrie Paniagua Other [facility] Other 07-12-2022 15:50-0400 Body mass index (BMI) [Ratio] 21.04 kg/m2 Torrie Paniagua Other [facility] Other 07-12-2022 15:50-0400 Body temperature 100.6 [degF] Torrie Roymond Other [facility] Other 07-12-2022 15:50-0400 Body weight 62.32 kg Torrie Roymond Other [facility] Other 07-12-2022 15:50-0400 Respiratory rate 18 /min Torrie Paniagua Other [facility] Other 07-12-2022 15:50-0400 SaO2% (BldA) [Mass fraction] 98 % Torrie Arcelia Other [facility] Other 10-20-2021 18:00-0400 Body height 172.09 cm Torrie Roymond Other [facility] Other 10-20-2021 18:00-0400 Body mass index (BMI) [Ratio] 22.21 kg/m2 Torrie Roymond Other [facility] Other 10-20-2021 18:00-0400 Body temperature 98.4 [degF] Torrie Roymond Other [facility] Other 10-20-2021 18:00-0400 Body weight 65.77 kg Torrie Arcelia Other [facility] Other 10-20-2021 18:00-0400 SaO2% (BldA) [Mass fraction] 97 % Torrie Arcelia Other [facility] Other Encounters Encounter Date Encounter Type Care Provider Facility Start: 11-02-2022 End: 11-02-2022 ambulatory Kori Roldan Other [facility] Other Start: 11-02-2022 Office outpatient vi sit 15 minutes Kori Roldan [facility] Start: 07-12-2022 End: 07-12-2022 ambulatory Torrie Paniagua Other [facility] Other Start: 07-12-2022 Office outpatient vi sit 15 minutes Torriekp Paniagua [facility] Start: 10-29-2021 End: 10-30-[address] LE WLELS Facility:[facility] Start: 10-20-2021 End: 10-20-2021 ambulatory Torrie Paniagua Other [facility] Other Start: 10-20-2021 Office outpatient vi sit 15 minutes Torriekp Paniagua [facility] Start: 09-08-2021 End: 09-09-[address] CASIMIRO PALOMINO Facility:[facility] Start: 12-16-2019 End: 12-16-2019 Chart abstracting Lalo Ahmadi Work Phone: Hematology/Oncology Start: 12-16-2019 End: 12-16-2019 Patient encounter procedure External Provider [facility] Start: 12-16-2019 Results Only External Provider [facility] Start: 04-07-2017 End: 04-09-2017 Patient encounter [facility]YLIN HEAD [facility] Start: 04-05-2017 End: 04-05-2017 Patient encounter AYLIN GARZA SONIDO [facility] Start: 04-03-2017 End: 04-03-2017 Emergency department patient visit LISA ESTEVEZ [facility] Procedures Date Procedure Procedure Detail Performing Clinician Start: 12-16-2019 EXTERNAL LAB External Beverly milton Plan of Treatment Date Care Activity Detail Author Start: 10-14-2019 Influenza vaccination INFLUENZA (#1) [facility] Start: 2014 Urine microalbumin profile DTAP,TDAP ,TD (1 - Tdap) [facility] Start: 2013 HEPATITIS C SCREENING HEPATITIS C SC IRENA [facility] Start: 2013 HIV SCREENING HIV SCREENING [facility] Start: 2006 HPV VACCINE (1 - Mal e 2-dose series) HPV VACCINE (1 - Male 2-dose series) [facility] Muriel c Payers Date Payer Category Payer Private Health Insurance AET[employer] A ETNA CHOICE POS II [id number] 2019-Present POS [id number] 1995 Unknown [id number] 1995 Unknown [id number] 1959 Private Health Insurance [id number] [facility] [id number] Unknown [id number] Social History Date Type Detail Facility Start: 12-16-2019 Tobacco smoking status NHIS Unknown if ever smoked [facility] Sex Assigned At Not on file [facility] Sex Assigned At Sex Assigned At [facility] Other Evaluation note 11-02-2022 Note Date & Type Note Facility 11-02-2022 Evaluation note Encounter Date Diagnosis Assessment Notes Oct, Contact with and (suspected) exposure to covid-19 (ICD-10 - Z20.822) Oct, Viral URI with cough (ICD-10 - J06.9) Discussed with patient exam and history is consistent with viral upper respiratory infection. Discussed viral nature of illness and typical duration of 7 to 14 days. Advised antibiotics unfortunately do not treat viral illnesses. May use symptomatic treatment such as capmist rx. May use Tylenol/ibuprofe n for any pain/fever. Follow-up with PCP if not improving over the next 7 days, sooner if significantly worsening symptoms. Rapid covid neg [facility] Other Evaluation note 07-12-2022 Note Date & Type Note Facility 07-12-2022 Evaluation note Encounter Date Diagnosis Assessment Notes June, Contact with and (suspected) exposure to covid-19 (ICD-10 - Z20.822) June, Influenza A (ICD-10 - J10.1) Influenza: adult home care material was printed Drink plenty fluids, get plenty of rest. Take Tylenol or Motrin as needed for aches pains or fevers. Off work until Sunday. Follow-up with your family physician if no improvement in 4 to 5 days June, Sore throat (ICD-10 - J02.9) [facility] Other Evaluation note 10-20-2021 Note Date & Type Note Facility 10-20-2021 Evaluation note Encounter Date Diagnosis Assessment Notes Oct, Contact with and (suspected) exposure to other viral communicable diseases (ICD-10 - Z20.828) Oct, COVID-19 (ICD-10 - U07.1) Discharge Instructions for COVID-19 (Suspected or Confirmed ) material was printed Drink plenty fluids, get plenty of rest. You must quarantine for 5 days after the onset of your symptoms. Take Tylenol or Motrin as needed for aches pains or fevers. Follow-up with your family physician if no improvement in 2 to 3 days. [facility] Other History general Narrative - Reported Note Date & Type Note Facility History general Narrative - Reported Type Medical History migraine headache Hospitalization History seizures [facility] Other Summary Purpose Family History No Family History Records FoundNo Family History Records Found Advance Directives No Advanced Directives Records FoundNo Advanced Directives Records Found Additional Source Comments (unrecognized sect ion and content) No Status Records FoundNo Status Records Found INFORMATION SOURCE (unrecogn ized section and content) DATE CREATED AUTHOR 09/13/2017 Anjali alvarengapiapryl DATE CREATED AUTHOR 'S ROSIO ATELLIE 11/16/2021 [facility] Comments (unrecognize d section and content) In the event this informatio n is protected by the Federal Confidentiality of Alcohol and Drug Abuse Patient Records regulations: The Federal rules restrict any use of the information to criminally investigate or prosecute any alcohol or drug abuse patient.[facility] the event this information is protected by the Federal Confidentiality of Alcohol and Drug Abuse Patient Records regulations: The Federal rules restrict any use of the information to criminally investigate or prosecute any alcohol or drug abuse patient.[facility] REASON FOR VISIT (unrecogniz ed section and content) SALMERON DODGE DART, COUGH, OSCAR ESTIONSORE THROAT,MUCUS OUT OF NOSE/MOUTHCOUGH, CONGESTION, FOR RECORDS PERTAINING TO PATIENTS WHO ARE OR HAVE BEEN ENROLLED IN A CHEMICAL DEPENDENCY/SUBSTANCEABUSE PROGRAM, SOME INFORMATION MAY BE OMITTED. This clinical summary was aggregated from multiple sources. Caution should be exercised in using it in the provision of clinical care. This summary normalizes information from multiple sources, and as a consequence, information in this document may materially change the coding, format and clinical context of patient data. In addition, data may be omitted in some cases. CLINICAL DECISIONS SHOULD BE BASED ON THE PRIMARY CLINICAL RECORDS. [employer] [facility]. provides no warranty or guarantee of the accuracy or completeness of information in this document.
--- NOTE | 2023-02-13 12:29 | MR_ITS ---
The [address] [address] Patient Name: J CARLOS BARCENAS MRN: [id number] date: 1995 Sex: M Assigned Patient Location: MRI Current Patient Location: MRI Accession/Order Number: [id number] Exam Date: 02/13/2023 12:45 Report Date: 02/13/2023 13:40 At the request of: KARIE NEGRO Procedure: MR knee RT wo con EXAM: MR knee RT wo con REASON FOR EXAM: Right Knee Sprain S83.91XA. TECHNIQUE: Multiplanar, multisequence imaging of the right knee was performed without contrast COMPARISON: Plain radiographs 12/28/2022. FINDINGS: Laterally, the iliotibial band, fibular collateral ligament, popliteus tendon and biceps tendon are intact. The ACL is intact. The lateral meniscus demonstrates normal morphology and signal without tear. There is bone marrow edema involving the posterior lateral tibial plateau. There is a nondisplaced fracture involving the posterior lateral tibial plateau with associated trabecular microfracture, which dissipates inferiorly. The lateral articular cartilage demonstrates low-grade chondrosis. Medially, the medial collateral ligament is intact. The PCL is intact. The medial meniscus demonstrates normal morphology and signal without tear. The medial articular cartilage demonstrates low-grade chondrosis. The extensor mechanism is intact. The patellofemoral cartilage is intact. The remaining bone marrow signal is normal. No joint effusion. The regional musculature is without muscle strain or tendon tear. MR/MR knee RT wo con IMPRESSION: 1. Likely subacute nondisplaced fracture involving the posterior lateral tibial plateau. 2. Intact menisci, cruciate and collateral ligaments. 3. 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 Electronically authenticated by: SILVIO LO Date: 02/13/2023 13:40
== END 2023-02-13 12:25 | disposition home or self-care (01) ==
LOC: MRI 12:25
PROVIDERS: PCP Family Medicine; Visit Provider Nurse Practitioner Family
DX: S83.91XA Sprain of unspecified site of right knee, initial encounter (principal); S86.811A Strain of other muscle(s) and tendon(s) at lower leg level, right leg, initial encounter
CPT/HCPCS: 73721

== ENCOUNTER 2023-07-18 06:57 | Outpatient (RCR) | payer OTHER, SELFPAY | END 2023-08-10 11:25 | disposition home or self-care (01) | LOC: PT 06:57 | PROVIDERS: PCP Family Medicine; Visit Provider Nurse Practitioner Family | DX: S82.121D Displaced fracture of lateral condyle of right tibia, subsequent encounter for closed fracture with routine healing (principal); S86.811D Strain of other muscle(s) and tendon(s) at lower leg level, right leg, subsequent encounter; S83.91XD Sprain of unspecified site of right knee, subsequent encounter | CPT/HCPCS: 97110; 97161 ==

== ENCOUNTER 2024-06-18 14:21 | Outpatient (RCR) | payer OTHER, SELFPAY | END 2024-10-21 07:02 | disposition home or self-care (01) | LOC: PT 14:21 | PROVIDERS: PCP Family Medicine; Visit Provider Orthopaedic Surgery | DX: Z98.890 Other specified postprocedural states (principal); S76.111D Strain of right quadriceps muscle, fascia and tendon, subsequent encounter; S82.121D Displaced fracture of lateral condyle of right tibia, subsequent encounter for closed fracture with routine healing; M76.891 Other specified enthesopathies of right lower limb, excluding foot | CPT/HCPCS: 97014; 97110; 97112; 97162 ==